=== PATIENT | female | born 1970 | race Caucasian/White ===

== ENCOUNTER → 2017-08-21 | Outpatient (CLI) | payer OTHER | LOC: FIMAGING 08:55 | PROVIDERS: ATTEND Family Medicine | DX: Z12.31 Encounter for screening mammogram for malignant neoplasm of breast (principal); Z80.3 Family history of malignant neoplasm of breast | CPT/HCPCS: G0202 ==

== ENCOUNTER 2018-05-18 18:10 | Emergency (ER) | payer OTHER ==
[2018-05-18] MEDS ORDERED: TDAP ADULT 0.5 ML INJ (BOOSTRIX) IM ONE (19:06)
--- NOTE | 2018-05-18 19:34 | EDPHY ---
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 She had the wrong button while holding at the cause the machine to start and cause lacerations to the dorsum and the palmar aspect of her left 2nd finger shortly prior to arrival with severe pain. Her her in for evaluation. She reports associated moderate bleeding that slowed with direct pressure. No other injuries. No other complaints. No other exacerbating factors. ROS: Neuro: No numbness. Musculoskeletal: No other injuries. No bony pain to the affected finger. No difficulty moving the affected finger. 5 point ROS is otherwise negative. Past Medical/Surgical History: Tetanus Immunization not up-to-date Smoking Status: Never smoked Physical Exam: Physical Exam Vital signs are normal. General: No acute distress Eyes: Pupils equal and react to light. Extraocular motions are intact. Lungs: No respiratory distress. Cardiac: Brisk capillary refill is intact throughout. Skin: No rash or pallor. Extremities: Atraumatic normal except for left 2nd finger Left 2nd finger: Patient has a 1 cm laceration to the dorsum of the finger proximal to the nail bed with subcutaneous tissue evident but no deeper structures injured, mild bleeding is present. On the plantar aspect distal phalanx she has another 1 cm full-thickness laceration with brisk bleeding and a 2nd more proximal 3 mm full-thickness laceration with mild bleeding Neuro: Alert and oriented with no sensorimotor deficits in the affected finger. She maintains 2 point discrimination Constitutional: Initial Vital Signs Temperature (C) 36.7 C 05/18/18 18:16 Heart Rate 82 05/18/18 18:16 Respiratory Rate 16 05/18/18 18:16 Blood Pressure 134/82 H 05/18/18 18:16 O2 Sat (%) 98 05/18/18 18:16 O2 Delivery Mode Room Air MDM/Departure - MDM Procedures: Digital block: After verbal consent, using a 50 50 mix of 0.5% Marcaine 2% plain lidocaine, 27 gauge needle, chlorhexidine scrub under sterile conditions- 3 injections were administered to the base of the affected finger, 8 mL with good effect. Patient tolerated this well. There were no complications. The 1st wound is 1 cm long located dorsum of finger described physical exam, 2nd wound is 1 cm long plantar aspect described physical exam, 3rd wound is 3 mm plantar aspect. The wound was copiously irrigated with saline. The wound was explored for foreign bodies and none were found. The wound was prepped and draped in the normal sterile fashion. The edges of the 1st wound reapproximated using 4 0 Prolene, 2 interrupted sutures, 4 running sutures with good hemostasis and cosmesis. 2nd wound is closed with 4 0 Prolene, 4 running sutures, 3rd wound closed with 1 interrupted suture 4 0 Prolene all with good hemostasis and cosmesis. The patient tolerated the procedure well. There were no complications. She is placed in tube gauze dressing by [facility] Medications Given: Discontinued Medications Diphtheria/Tetanus/Acell Pertussis (Boostrix) 0.5 ml IM .ONCE ONE Stop: 05/18/18 19:07 Last Admin: 05/18/18 19:11 Dose: 0.5 ml ED Course/Re-evaluation: Discussion: Patient with multiple finger lacerations to the left index finger with a pulsatile bleeder on the palmar aspect that is controlled with suturing. I counseled her regarding importance of applying some ice and elevating the finger to help diminish the chance of hematoma development. No evidence of neurologic injury or tendon injury based on exam. - Depart Disposition: Home, Routine, Self-Care Clinical Impression: Finger laceration Qualifiers: Encounter type: initial encounter Finger: index finger Damage to nail status: without damage Foreign body presence: without foreign body Laterality: left Qualified Code(s): S61.211A - Laceration without foreign body of left index finger without damage to nail, initial encounter Condition: Good Instructions: Finger Laceration (ED) Additional Instructions: Diagnosis: Finger laceration Plan: Keep the wound clean and dry for the 1st 2 days. Then remove dressing and clean daily with warm soapy water. Ibuprofen Tylenol for pain as needed Return for suture removal in 10-12 days Return sooner if he develops redness, discharge or other concerns for infection. Referrals: NONE *PRIMARY CARE P,. [Primary Care Provider] - As per Instructions
[2018-05-18 20:31] VITALS: BP 128/85
== END 2018-05-18 20:26 | disposition home or self-care (01) ==
LOC: CED 18:10
PROC: 0HQGXZZ Repair Left Hand Skin, External Approach (ICD-10-PCS; principal; 2018-05-18)
DX: S61.211A Laceration without foreign body of left index finger without damage to nail, initial encounter (principal); Z23 Encounter for immunization; W26.8XXA Contact with other sharp object(s), not elsewhere classified, initial encounter; Y99.8 Other external cause status; Y93.89 Activity, other specified